=== PATIENT | female | born 1980 | race Caucasian/White ===

== ENCOUNTER 2018-11-08 00:36 | Inpatient (IN) | payer BC, OTHER ==
--- NOTE | 2018-11-08 01:57 | PDGENHP ---
History and Physical History and Physical: Care: [facility] HPI: Briana Coffey is a [id number] with IUP@39-0 weeks that presents to L&D with complaints of contractions since 1400 on 11/06/18. She states that they are getting stronger, rating them 6/10. She denies any LOF, Vb. Reports +FM. EDC: 11/15/18 which is based on Ultrasound at 7 weeks. Her is complicated by: BIMAL @16wks, AMA, h/o shingles, anemia Review of Systems: Constitutional: Denies any fever, chills, or fatigue HEENT: denies any visual changes, difficulty swallowing, hearing loss Cardiovascular: Denies any chest pain, palpitations, leg swelling Respiratory: denies any cough, wheezing, or shortness of breathe GI: Denies any nausea, vomiting, diarrhea, constipation : denies any dysuria, urgency, frequency, vaginal bleeding Musculoskeletal: denies any muscle or bone pain Skin: denies any rashes Neuro: denies any headache, seizures, lightheadedness, dizziness, or loss of consciousness Psychiatric: denies any depression, anxiety, or SI/HI thoughts HISTORY: Previous OB history: SAB x1 Past medical history: h/o shingles, anxiety Past surgical history: breast augmentation, oral surgery Social: Denies any alcohol, tobacco, or drug use. Family history: Not relevant Medications: PNV, iron Allergies (list reaction): NKDA LABS: Rh: O+ ABS: Neg Rubella: Immune HbsAg: NR HIV: NR VDRL: NR 1hr: 115 GC: Neg Chlamydia: Neg Pap: Normal GBS: negative BMI: (prepreg) 21 PHYSICAL EXAM: Constitutional: WN, A&Ox3 HEENT: normocephalic atraumatic, supple Skin: Warm, dry, intact Heart: RRR, no murmur Chest: CTA-B Abdomen: Soft, nontender, gravid SVE: 2/90/-2 (per RN) Extremities: trace edema, negative homans sign Neuro: grossly normal Psych: normal affect assessment: FHT baseline 125 +accels, no decels, moderate variability Contractions: toco q 4-7 Assessment: 1) [id number] with IUP@ 39-0wks 2) early labor 3) GBS negative 4) Cat 1 FHR tracing Plan: 1) vistaril 50-100mg 2) reassess 2-4 hr/PRN 3) admit to L&D 4) anticipate Today's visit was approximately 30 min, of which >50% of visit 20 min, was spent face to face with pt on direct counseling/coordination of care.
[2018-11-08] MEDS: hydrOXYzine HCL 50 MG TAB PO PRN ×2 (02:12→03:05)
[2018-11-08] MEDS ORDERED: OLIVE OIL 118 ML BTL ONE (04:42)
[2018-11-08] MEDS ORDERED: LIDOCAINE 1% 300 MG/30 ML SDV ONE (04:42)
[2018-11-08] MEDS ORDERED: AMMONIA AROMATIC 1 EACH AMP IH ONE (04:42)
[2018-11-08] MEDS ORDERED: OXYTOCIN 10 UNIT/ML VIAL ONE (04:43)
[2018-11-08] MEDS ORDERED: MISOPROSTOL 200 MCG TAB ONE (04:43)
[2018-11-08] MEDS ORDERED: TERBUTALINE SULFATE 1 MG/ML VIAL ONE (04:43)
[2018-11-08] MEDS ORDERED: MISOPROSTOL 200 MCG TAB PR PRN (05:48)
[2018-11-08] MEDS ORDERED: LIDOCAINE 1% 300 MG/30 ML SDV SC PRN (05:48)
[2018-11-08] MEDS ORDERED: LR 1,000 ML IV PRN (05:48)
[2018-11-08] MEDS ORDERED: OXYTOCIN/RINGERS LACTATE 1,000 ML IV PRN (05:48)
[2018-11-08] MEDS ORDERED: EPSOM SALT 454 GM TP PRN (05:48)
[2018-11-08] MEDS ORDERED: OLIVE OIL 118 ML BTL MISC PRN (05:48)
[2018-11-08] MEDS ORDERED: IBUPROFEN 600 MG TAB PO PRN (05:48)
[2018-11-08] MEDS ORDERED: TERBUTALINE SULFATE 1 MG/ML VIAL IV PRN (05:48)
[2018-11-08] MEDS ORDERED: SIMETHICONE 80 MG TAB CHEW PO PRN (06:18)
[2018-11-08] MEDS ORDERED: ACETAMINOPHEN 325 MG TAB PO PRN (06:18)
[2018-11-08] MEDS ORDERED: HYDROCORTISONE 0.5% CREAM TP PRN (06:18)
--- NOTE | 2018-11-08 06:21 | OBDEL ---
Info Type: Vaginal Presentation at Delivery: Vertex L&D Analgesia/Anesthesia Type: None GBS+: No Intrapartum Medications: Generic Name Dose Route Start Last Admin Trade Name Janet PRN Reason Stop Dose Admin Hydroxyzine HCl 50 - 100 mg 11/08/18 01:57 11/08/18 03:05 Hydroxyzine Hcl PO 05/07/19 01:56 50 mg Q12 PRN Administration Sleep/Insomnia Lidocaine HCl 300 mg 11/08/18 05:48 11/08/18 06:12 Lidocaine Hcl 1% SC 05/07/19 05:47 300 mg ONCE PRN Administration episiotomy Holland Oil 118 ml 11/08/18 05:48 11/08/18 06:12 Sweet Oil MISC 05/07/19 05:47 1 btl ONCE PRN Administration perineal massage Indications for Delivery: Spontaneous Labor, SROM Vaginal Delivery - Delivery Provider Delivery Physician/CNM: Jazmin Cali - Labor and Delivery Onset of Contractions Date: 11/07/18 Onset of Contractions Time: 09:30 Onset of Contractions Type: Spontaneous Rupture of Membranes Date: 11/08/18 Rupture of Membranes Time: 03:52 Rupture of Membranes Type: Spontaneous Amniotic Fluid Color: Clear Dilation Complete Date: 11/08/18 Dilation Complete Time: 05:19 Placenta Delivery Date: 11/08/18 Placenta Delivery Time: 05:43 Total Hours of Labor: 20 Laceration: 1st Degree Repair: 3-0, Vicryl Vaginal Sponge Count Correct: Yes Vaginal Needle Count Correct: Yes Vaginal Sweep Performed: Yes EBL: 150 Delivery Comment: delivered standing/squat [place] Data JARROD: 11/15/18 Gestational Age: 39 week(s) and 0 day(s) [place] Delivery Date: 11/08/18 Delivery Time: 05:33 Sex of Infant: Female Score (1 Min): 9 Score (5 Min): 9 ICD10 Worksheet Patient Problems: Problems Problem Status Onset First degree perineal laceration during delivery Acute (spontaneous vaginal delivery) Acute - ICD10 Problem Qualifiers (1) (spontaneous vaginal delivery) (2) First degree perineal laceration during delivery
[2018-11-08] MEDS: IBUPROFEN 600 MG TAB PO PRN ×2 (13:23→20:18)
[2018-11-08] MEDS: DOCUSATE SODIUM 100 MG CAP PO PRN (20:18)
[2018-11-09] MEDS: IBUPROFEN 600 MG TAB PO PRN ×2 (06:04→12:05)
[2018-11-09 06:58] LABS: PLATELET COUNT 173 10^3/uL (150-400)
--- NOTE | 2018-11-09 10:53 | OBPP ---
Progress Note Assessment/Plan: Assessment: 38 y/o P1 s/p ppd #1 Plan: routine pp care plan d/c tomorrow 11/09/18 10:52 Subjective/ Course: 11/09/18 10:52 feeling good this am. going well. Vag bleeding wnl, pain well controlled with oral pain meds, voiding, tolerating activity and reg diet. Objective: 11/09/18 06:20 Temp Pulse Resp BP Pulse Ox 35.9 C L 92 18 105/69 95 11/09/18 08:00 11/09/18 08:00 11/09/18 08:00 11/09/18 08:00 11/09/18 08:00 Uterine Position/Fundal Height: Umbilicus -1 Uterine Tone: Firm Physical Exam - Physical Exam EENT: PERRL/EOMI Neck: non-tender Respiratory: normal breath sounds Cardiac/Chest: regular rate, rhythm Abdomen: non-tender Extremities: normal range of motion Skin: normal color, warm/dry Neuro/Psych: no motor/sensory deficits, normal mood/affect, oriented x 3
[2018-11-09] MEDS: DOCUSATE SODIUM 100 MG CAP PO PRN (12:05)
[2018-11-10] MEDS: IBUPROFEN 600 MG TAB PO PRN ×2 (01:54→09:06)
[2018-11-10 09:29] VITALS: BP 102/70
--- NOTE | 2018-11-10 11:44 | OBPP ---
Progress Note Assessment/Plan: Assessment: Plan: 11/10/18 11:43 A) PPD #2 Establishing P) Discharge home today, follow up in the clinic week 26 Subjective/ Course: 11/09/18 10:52 feeling good this am. going well. Vag bleeding wnl, pain well controlled with oral pain meds, voiding, tolerating activity and reg diet. 11/10/18 11:41 doing very well. Milk coming in. Nipples a little sore but no cracking or bleeding. Per call center consultant latch is good. Pain minimal. Vag bleeding is minimal. Plans discharge home today Objective: 11/09/18 06:20 Temp Pulse Resp BP Pulse Ox 36.8 C 76 19 102/70 97 11/10/18 08:00 11/10/18 08:00 11/10/18 08:00 11/10/18 08:00 11/10/18 08:00 Nipples intact bilaterally, breasts full, transitional milk present Uterine Position/Fundal Height: Umbilicus -2 Uterine Tone: Firm
--- NOTE | 2018-11-10 11:45 | OBGCSDC ---
General Delivery Information - General Info : 2 Para: 1 Abortions: 0 Type: Vaginal L&D Analgesia/Anesthesia Type: None Admission Date: 11/08/18 Labs: Hct 39.5 % (38.0-47.0) 11/09/18 06:20 - Hospital Course : 11/09/18 10:52 feeling good this am. going well. Vag bleeding wnl, pain well controlled with oral pain meds, voiding, tolerating activity and reg diet. 11/10/18 11:41 doing very well. Milk coming in. Nipples a little sore but no cracking or bleeding. Per regional engagement consultant latch is good. Pain minimal. Vag bleeding is minimal. Plans discharge home today Vaginal - Delivery Provider Delivery Physician/CNM: Jazmin Cali - Diagnosis Labor: Spontaneous Rupture of Membranes Type: Spontaneous Amniotic Fluid Color: Clear Laceration: 1st Degree Repair: 3-0, Vicryl - Delivery EBL: 150 [place] Data JARROD: 11/15/18 Gestational Age: 39 week(s) and 2 day(s) [place] Delivery Date: 11/08/18 Delivery Time: 05:33 Sex of Infant: Female [place] Weight (gm): 3330 g Score (1 Min): 9 Score (5 Min): 9 Discharge Information - Discharge Information Condition: Good Instruction/Follow Up: Two Weeks, Four Weeks, Six Weeks
== END 2018-11-10 13:15 | disposition home or self-care (01) | DRG 807 ==
LOC: FLD 00:36 → OBSVTOIN 08:40 → FOB 09:52
PROVIDERS: ADMIT Advanced Practice Midwife; ATTEND Advanced Practice Midwife
PROC: 0HQ9XZZ Repair Perineum Skin, External Approach (ICD-10-PCS; principal; 2018-11-08)
PROC: 10E0XZZ Delivery of Products of Conception, External Approach (ICD-10-PCS; principal; 2018-11-08)
DX: O70.0 First degree perineal laceration during delivery (principal); Z3A.39 39 weeks gestation of pregnancy; Z37.0 Single live birth
CPT/HCPCS: J2590; J3105